=== PATIENT | female | born 1970 | race Caucasian/White ===

== ENCOUNTER 2016-12-12 08:40 | Emergency (ER) | payer OTHER ==
[~2016-12-12] VITALS: Ht 170.2 cm; Wt 100.7 kg
[~2016-12-12 08:40] MED LIST: ANAS1TAB19 PO; ESCI1TAB18 PO; LISI20TA3 PO; METF500T PO
[2016-12-12 08:46] VITALS: TEMP 36.7; Ht 170.2 cm; Wt 100.7 kg
[2016-12-12 09:28] LABS: MANUAL MICROSCOPIC REQUIRED? NO; REVIEW REQ? NO; URINE APPEARANCE CLEAR (CLEAR); URINE BILIRUBIN NEG (NEG); URINE COLOR YELLOW; URINE NITRITE NEG (NEG); URINE SPECIFIC GRAVITY 1.021 (1.000-1.030); UROBILINOGEN NEG (NEG); ZZUR CULT IF INDIC CLEAN CATCH NO
[2016-12-12] MEDS ORDERED: LOSA1TAB PO (09:31)
[2016-12-12] MEDS ORDERED: GLCSR500 PO (09:31)
--- NOTE | 2016-12-12 10:00 | EMERGENCY ROOM VISIT NOTE ---
History Report prepared by Wagner: Page Bucio Under the Supervision of: Dr. Mike Damico M.D. First contact with patient: 09:35 Chief Complaint: UNABLE TO VOID Stated Complaint: BURNING,PAIN,UTI?KIDNEY STONE? Nursing Triage Summary: Burning and pain on urination with hesitancy, started yesterday. Hx of septicemia, kidney stone requiring stents, UTI per pt. History of Present Illness The patient is a 46 year old female who presents to the Emergency Room with complaints of constant burning pain in her urethra starting three days ago. The patient states that she has been having urinary symptoms and complains of not being able to urinate this morning. She states that she is experiencing some right back pain as well. She reports that she has a history of kidney stones, hydronephrosis, and an oophorectomy. The patient reports she no longer gets her period. She denies any abdominal pain. Source of History: patient Onset: three days ago Position: other (urethra) Quality: burning Timing: constant Associated Symptoms: + back pain, + urinary symptoms, No abdominal pain Review of Systems All systems have been listed, reviewed, and are negative other than those previously mentioned. Please see Additional Medical History Sheet. Past Medical & Surgical Medical Problems: (1) Breast cancer (2) Hydronephrosis (3) Hypertension (4) Kidney stone (5) Sepsis (6) ureteral stent Family History Patient reports no known family medical history. No pertinent family history. Social History Smoking Status: Never Smoker Drug Use: none Marital Status: single Occupation Status: employed Current/Historical Medications Scheduled Anastrozole (Arimidex), 1 MG PO DAILY Escitalopram Oxalate (Lexapro), 20 MG PO DAILY Losartan Potassium (Cozaar), 25 MG PO QAM Metformin HCl (Metformin HCl ER), 500 MG PO BID Nitrofurantoin Monohyd Macrocr (Macrobid), 100 MG PO BID Allergies Coded Allergies: Adhesives (Verified Allergy, Intermediate, skin blisters, 12/12/16) Physical Exam Vital Signs Date Time Temp Pulse Resp B/P Pulse Ox O2 Delivery O2 Flow Rate FiO2 12/12/16 11:57 84 16 164/98 96 12/12/16 10:41 85 16 161/103 96 Room Air 12/12/16 08:46 36.7 89 16 180/121 96 Room Air Physical Exam GENERAL: Patient awake, alert, oriented x 3. Patient follows commands. Patient does not appear toxic. Patient is adequately hydrated and well- nourished. SKIN: No erythema, pallor, cyanosis or rash HEENT: Normal head, pupils equal, reactive to light and accommodation. Ears normal. Oral cavity and posterior pharynx appear normal. Neck: Without adenopathy, no neck vein distention. LUNGS: Clear to auscultation. No wheezes, no rales, no rhonchi. HEART: No murmurs. No gallops. No rubs ABDOMEN: No masses, no rebound, no hepatomegaly or splenomegaly. Soft non-tender , no CVA tenderness. EXTREMITIES: No signs of trauma or infection. No pedal or pretibial edema. No calf or thigh tenderness. NEUROLOGIC: Cranial nerves II-XII within normal limits. No gross motor sensory function deficits. Medical Decision & Procedures ER Provider Diagnostic Interpretation: Radiology results as stated below per my review and radiologist interpretation: RENAL ULTRASOUND HISTORY: right flank pain past stones COMPARISON: None. FINDINGS: Right kidney: 12.1 cm. Moderate hydronephrosis. Normal corticomedullary differentiation and cortical thickness. A 9 mm stone at the right ureterovesical junction. Left kidney: 12.3 cm. No hydronephrosis. Normal corticomedullary differentiation and cortical thickness. A 1.8 cm parapelvic cyst. Bladder: No bladder wall thickening. IMPRESSION: A 9 mm right ureterovesical junction stone resulting and moderate right hydronephrosis. Electronically signed by: Richard Fuentes M.D. 12/12/2016 11:04 AM Dictated Date/Time: 12/12/2016 11:03 AM Laboratory Results 12/12/16 09:50 Red Blood Count 4.69, Mean Corpuscular Volume 85.3, Mean Corpuscular Hemoglobin 27.5, Mean Corpuscular Hemoglobin Concent 32.3, Mean Platelet Volume 9.9, Neutrophils (%) (Auto) 69.6, Lymphocytes (%) (Auto) 18.6, Monocytes (%) (Auto) 8.4, Eosinophils (%) (Auto) 3.0, Basophils (%) (Auto) 0.2, Neutrophils # (Auto) 5.86, Lymphocytes # (Auto) 1.57, Monocytes # (Auto) 0.71, Eosinophils # (Auto) 0.25, Basophils # (Auto) 0.02 12/12/16 09:50 Test 12/12/16 08:55 12/12/16 09:50 Urine Color YELLOW Urine Appearance CLEAR (CLEAR) Urine pH 5.0 (4.5-7.5) Urine Specific [place] 1.021 (1.000-1.030) Urine Protein NEG (NEG) Urine Glucose (UA) NEG (NEG) Urine Ketones NEG (NEG) Urine Occult Blood 3+ (NEG) Urine Nitrite NEG (NEG) Urine Bilirubin NEG (NEG) Urine Urobilinogen NEG (NEG) Urine Leukocyte Esterase TRACE (NEG) Urine WBC (Auto) 1-5 /hpf (0-5) Urine RBC (Auto) >30 /hpf (0-4) Urine Hyaline Casts (Auto) 0 /lpf (0-5) Urine Epithelial Cells (Auto) 5-10 /lpf (0-5) Urine Bacteria (Auto) NEG (NEG) Urine Test NEG (NEG) White Blood Count 8.43 K/uL (4.8-10.8) Red Blood Count 4.69 M/uL (4.2-5.4) Hemoglobin 12.9 g/dL (12.0-16.0) Hematocrit 40.0 % (37-47) Mean Corpuscular Volume 85.3 fL (80-100) Mean Corpuscular Hemoglobin 27.5 pg (25-34) Mean Corpuscular Hemoglobin Concent 32.3 g/dl (32-36) Platelet Count 283 K/uL (130-400) Mean Platelet Volume 9.9 fL (7.4-10.4) Neutrophils (%) (Auto) 69.6 % Lymphocytes (%) (Auto) 18.6 % Monocytes (%) (Auto) 8.4 % Eosinophils (%) (Auto) 3.0 % Basophils (%) (Auto) 0.2 % Neutrophils # (Auto) 5.86 K/uL (1.4-6.5) Lymphocytes # (Auto) 1.57 K/uL (1.2-3.4) Monocytes # (Auto) 0.71 K/uL (0.11-0.59) Eosinophils # (Auto) 0.25 K/uL (0-0.5) Basophils # (Auto) 0.02 K/uL (0-0.2) RDW Standard Deviation 44.3 fL (36.4-46.3) RDW Coefficient of Variation 14.3 % (11.5-14.5) Immature Granulocyte % (Auto) 0.2 % Immature Granulocyte # (Auto) 0.02 K/uL (0.00-0.02) Anion Gap 9.0 mmol/L (3-11) Est Creatinine Clear Calc Drug Dose 83.9 ml/min Estimated GFR () 77.2 Estimated GFR (Non- 66.6 BUN/Creatinine Ratio 18.6 (10-20) Calcium Level 9.5 mg/dl (8.5-10.1) Laboratory results as stated above per my review. ED Course 0935: Past medical records reviewed. The patient was evaluated in room B10. A complete history and physical examination was performed. 1119: I reevaluated the patient and she is now in minimal pain. 1137: Upon reevaluation, the patient appeared to have improvement of her symptoms. I discussed today's findings with the patient. She verbalized agreement of the treatment plan. The patient was discharged home. Medical Decision Differential Diagnoses include urinary tract infection, pyonephritis, kidney stones Multiple labs and imaging were performed. Please see above. The patient has a 9 mm stone at the ureterovesical junction on the right side. She also has some hydronephrosis on the same side. The patient has only a few white cells and no bacteria in her urine. The patient has a prior history of septicemia from a previous stone. She will be placed on Macrobid prophylactically. The patient most likely will not pass the stone on her own but she currently is in minimal pain, therefore she can go home but will call her urologist tomorrow morning. Impression Primary Impression: Right ureteral calculus Additional Impressions: Hydronephrosis Elevated blood pressure reading Scribe Attestation The scribe's documentation has been prepared under my direction and personally reviewed by me in its entirety. I confirm that the note above accurately reflects all work, treatment, procedures, and medical decision making performed by me. Departure Information Dispostion Home / Self-Care Prescriptions Nitrofurantoin Monohyd Macrocr (Macrobid) 100 Mg Cap 100 MG PO BID for 5 Days, #10 CAP Prov: Mike Damico M.D. 12/12/16 Referrals Rosemarie Galo M.D. (PCP) Forms HOME CARE DOCUMENTATION FORM, IMPORTANT VISIT INFORMATION, WORK / SCHOOL INSTRUCTIONS Patient Instructions My [facility] [place] Additional Instructions 600 mg ibuprofen every 6 hours as needed for pain. You may take 1-2 oxycodone every 4 hours as needed for more severe pain. Do not drive or operate machinery while taking any opiates. 1 Macrobid twice a day for 5 days. Follow-up with Dr. Horner as soon as possible. You have a 9 mm stone at the right ureterovesical junction with some right hydronephrosis. Problem Qualifiers
[2016-12-12 10:12] LABS: BASO % 0.2 %; BASO ABS # 0.02 K/uL (0-0.2); COMPLETE YES; IG% 0.2 %; LYMPH % 18.6 %; LYMPH ABS # 1.57 K/uL (1.2-3.4); MEAN CELL VOLUME 85.3 fL (80-100); MEAN CORPUSCULAR HEMOGLOBIN 27.5 pg (25-34); MEAN CORPUSCULAR HGB CONC 32.3 g/dl (32-36); MEAN PLATELET VOLUME 9.9 fL (7.4-10.4); MONO % 8.4 %; NEUT % 69.6 %; PLATELET COUNT 283 K/uL (130-400); RED BLOOD COUNT 4.69 M/uL (4.2-5.4); WHITE BLOOD COUNT 8.43 K/uL (4.8-10.8)
[2016-12-12 10:29] LABS: BUN/CREATININE RATIO 18.6 (10-20); CALCIUM 9.5 mg/dl (8.5-10.1); POTASSIUM 4.3 mmol/L (3.5-5.1)
--- NOTE | 2016-12-12 11:06 | DIAGNOSTIC IMAGING REPORT ---
RENAL ULTRASOUND HISTORY: right flank pain past stones COMPARISON: None. FINDINGS: Right kidney: 12.1 cm. Moderate hydronephrosis. Normal corticomedullary differentiation and cortical thickness. A 9 mm stone at the right ureterovesical junction. Left kidney: 12.3 cm. No hydronephrosis. Normal corticomedullary differentiation and cortical thickness. A 1.8 cm parapelvic cyst. Bladder: No bladder wall thickening. IMPRESSION: A 9 mm right ureterovesical junction stone resulting and moderate right hydronephrosis. Electronically signed by: Richard Fuentes M.D. 12/12/2016 11:04 AM Dictated Date/Time: 12/12/2016 11:03 AM
[2016-12-12] MEDS ORDERED: NITR-5 PO (11:26)
[2016-12-12 11:57] VITALS: BP 164/98; PULSE 84; O2SAT 96
== END 2016-12-12 11:58 | disposition home or self-care (01) ==
LOC: C.EDB 08:41
DX: N20.1 Calculus of ureter (principal); N13.30 Unspecified hydronephrosis; R03.0 Elevated blood-pressure reading, without diagnosis of hypertension; Z85.3 Personal history of malignant neoplasm of breast; I10 Essential (primary) hypertension; Z90.722 Acquired absence of ovaries, bilateral; Z79.82 Long term (current) use of aspirin

== ENCOUNTER 2018-08-30 07:15 | Inpatient (IN) ==
[2018-08-30] MEDS ORDERED: SODIUM CHLORIDE 0.9% 1000ML 1,000 ML IV ONE (07:45)
[2018-08-30] MEDS ORDERED: HYDROmorphone INJ 0.5 MG/0.5 ML SYR IV STA (07:45)
[2018-08-30] MEDS ORDERED: ONDANSETRON INJ 2 MG/ML 2 ML VIAL IV STA ×2 (07:45→19:04)
--- NOTE | 2018-08-30 08:02 | Emergency Department Note ---
History of Present Illness General Chief complaint: Kidney Stone Stated complaint: VOMITING,BACK PAIN,POSS KIDNEY STONE Time Seen by Provider: 08/30/18 07:22 History of Present Illness Maximum Pain Intensity: 9 48-year-old female who presents to the emergency department with complaint of left back, flank and left lower quadrant pain that awakened her at 3 AM. The patient reports that the pain was initially sharp and intermittent in nature, and is now constant. The patient reports nausea and dry heaving for the past 4 hours. She try to take some Celebrex for the pain, but vomited her medication twice. The patient reports a prior history of kidney stones, and reports that this pain feels similar. Her last stone was approximately 2 years ago. The patient also reports that she has had some bright red blood on her stools. She denies any bleeding into the toilet. She does report a history of internal hemorrhoids that were found on colonoscopy approximately 3 years ago. In addition to the hemorrhoids, they also found a polyp that was benign. No mention of diverticulosis was made after her procedure. The patient also reports that she has had a cough now for several months. The patient does not have health insurance, and has not followed up with her family doctor for her cough. The patient currently rates her discomfort a 9 out of 10. She denies recent fever or chills. Home Medications Home Medications Medication Instructions Recorded Confirmed Type anastrozole [Arimidex] 1 mg PO DAILY #0 tab 08/07/15 08/30/18 History escitalopram oxalate 20 mg PO DAILY #0 tab 08/07/15 08/30/18 History losartan 25 mg PO DAILY #0 tab 12/12/16 08/30/18 History metformin 1,000 mg PO BID #0 12/12/16 08/30/18 History atorvastatin 20 mg PO DAILY 08/30/18 08/30/18 History bupropion HCl [Wellbutrin XL] 150 mg PO QAM 08/30/18 08/30/18 History glipizide 10 mg PO DAILY 08/30/18 08/30/18 History Allergies Allergy/AdvReac Type Severity Reaction Status Date / Time adhesive Allergy Intermediate skin Verified 08/30/18 07:44 blisters Past Med/Surg History Family History Father CAD (coronary artery disease) Mother Cerebral aneurysm Grandmother (Paternal) Ovarian ca Social History marital status: Single Current Living Situation: Alone current occupational status: employed Other Information That Helps Us Care for You: No Feels Safe at Home: Yes Safety Concerns: Feels Safe At This Time Smoking Status: Never smoker Do You Dip or Chew Tobacco: No Hx Alcohol Use: Yes Alcohol Intake Frequency: a few times a week Alcohol Intake Frequency Comment: 5 drinks a week Hx Substance Use: No Beliefs That Will Affect Care: None Preferred Language: Kazakh Communication Ability: Effective Outsole Cutter Machine Required: No Review of Systems HEENT: Denies dizziness, visual problems, hearing loss, tinnitus. Denies difficulty swallowing or oral lesions. PULMONARY: Denies shortness of breath, sputum production or hemoptysis, otherwise see HPI with complaint of a several month history of cough. CARDIOVASCULAR: Denies chest pain, palpitations, dyspnea on exertion, orthopnea or peripheral edema. GASTROINTESTINAL: Denies recent diarrhea or constipation, otherwise see HPI. GENITOURINARY: Denies dysuria, frequency, urgency or nocturia. NEUROLOGIC: Denies history of epilepsy, CVA, TIA or chronic headaches. MUSCULOSKELETAL: Denies history of joint tenderness/swelling. SKIN: Denies rashes or lesions. PSYCHIATRIC: Denies history of depression or mental illness. ENDOCRINE: Denies history of diabetes or thyroid disorders. Physical Exam Vital Signs Vital Signs - 24 hr 08/30/18 07:19 08/30/18 08:21 08/30/18 09:47 Temperature 36.3 C L Temperature Source Oral Sepsis Recent Fever Within 48 Hours No Sepsis New/Unexplained Change in Mental Status No Sepsis Action Taken by Nursing No Action Required Pulse Rate 91 H Pulse Rate [Left Brachial] 81 86 Pulse Rate [Right Finger] Respiratory Rate 20 18 16 Respiratory Effort / Characteristics Non-Labored Spontaneous Non-Labored Spontaneous Respiratory Depth Normal Normal Respiratory Pattern Regular Regular Blood Pressure 146/88 H Blood Pressure [Left Arm] 148/97 H 150/99 H Blood Pressure Mean 107 Blood Pressure Mean [Left Arm] 114 116 Blood Pressure Position [Left Arm] Lying Lying Pulse Oximetry 97 92 95 Oxygen Delivery Method Room Air Room Air Room Air 08/30/18 11:20 08/30/18 15:15 08/30/18 16:45 Temperature 36.8 C 36.7 C 37 C Temperature Source Oral Oral Oral Sepsis Recent Fever Within 48 Hours Sepsis New/Unexplained Change in Mental Status Sepsis Action Taken by Nursing Pulse Rate Pulse Rate [Left Brachial] 83 96 H Pulse Rate [Right Finger] 93 H Respiratory Rate 18 17 16 Respiratory Effort / Characteristics Non-Labored Spontaneous Non-Labored Spontaneous Respiratory Depth Normal Normal Respiratory Pattern Regular Regular Blood Pressure Blood Pressure [Left Arm] 152/94 H 157/96 H 137/85 Blood Pressure Mean Blood Pressure Mean [Left Arm] 113 116 102 Blood Pressure Position [Left Arm] Lying Lying Lying Pulse Oximetry 91 91 95 Oxygen Delivery Method Room Air Room Air Room Air CONSTITUTIONAL: Healthy and well nourished. Alert and oriented X 3. Patient appears in moderate severe discomfort. HEENT: Normocephalic, atraumatic. Pupils equal, round and reactive. Ears and nares are clear. No scleral icterus or conjunctival injection/pallor. Mucous membranes are dry. NECK: Full active range of motion without discomfort. No nuchal rigidity, JVD or carotid bruits. RESPIRATORY: Clear to auscultation bilaterally with no wheezing, crackles, rhonchi or stridor. CARDIOVASCULAR: Regular rate and rhythm with no murmurs, rubs or gallops. GASTROINTESTINAL: Bowel sounds present in all quadrants. Patient has minimal left lower quadrant tenderness to palpation. Negative CVA tenderness. No rigidity, guarding or rebound. MUSCULOSKELETAL: Full range of motion of all joints without discomfort. INTEGUMENTARY: No rash or other significant dermatologic conditions noted. HEMATOLOGIC: No ecchymosis or petechiae. NEUROLOGIC: Cranial nerves II-XII grossly intact. No focal neurologic deficits noted. PSYCHIATRIC: Positive affect. Course Patient history and physical exam were performed. Nurse's notes were reviewed. Vital signs were reviewed, showing an elevated blood pressure of 146/88. The patient is not tachycardic and is afebrile. IV access was established, and labs were drawn. The patient was hydrated initially with a liter of normal saline, and was also administered IV Dilaudid and Zofran for pain and nausea. Review of labs shows a mild leukocytosis with left shift and bandemia. Electrolytes were reviewed, showing elevated LFTs and alkaline phosphatase. Random glucose was also elevated at 284. Lipase and remaining electrolytes are otherwise normal. Noncontrast CT of the abdomen and pelvis showed 2 adjacent obstructing ureteral stones at the UPJ, measuring 10 and 5 mm in size. Chest x- ray did not show any acute intrathoracic findings. Upon reevaluation, the patient reported no significant relief of pain. She was then administered additional Dilaudid and Zofran. The case was then discussed with Dr. Aponte, ED attending physician, who recommended consultation with [facility] urology. I spoke with Dr. Horner who requested a urine cath microscopy study. She has requested that the patient be brought into the hospital for observation and n.p.o. status until she can reevaluate the patient later this afternoon for possible surgical intervention. I did discuss this with the patient who was in agreement. The case was then discussed with the [facility] hospitalist service. Please see their dictations for further treatment and final disposition. Administered Medications Sodium Chloride (Nss 1000ml) 1,000 mls @ 150 mls/hr IV .Q6H40M GERARD Stop: 09/29/18 11:29 Last Admin: 08/30/18 11:31 Dose: 150 mls/hr Insulin Aspart (Novolog Flexpen) 0 units SC Q6H GERARD Stop: 09/29/18 12:59 Last Admin: 08/30/18 12:51 Dose: Not Given Insulin Glargine (Lantus Solostar Pen) 0 - 8 units SC Q12 GERARD; Protocol Stop: 09/29/18 11:15 Last Admin: 08/30/18 12:14 Dose: 8 units Ketorolac Tromethamine (Toradol) 15 mg IV Q6H PRN PRN Reason: Pain Stop: 09/04/18 11:15 Last Admin: 08/30/18 11:45 Dose: 15 mg Losartan Potassium (Cozaar) 25 mg PO DAILY GERARD Stop: 09/29/18 11:15 Last Admin: 08/30/18 12:03 Dose: 25 mg Ondansetron HCl (Zofran) 4 mg IV Q6H PRN PRN Reason: Nausea Stop: 09/29/18 11:15 Last Admin: 08/30/18 11:46 Dose: 4 mg Discontinued Medications Hydromorphone HCl (Dilaudid) 0.5 mg IV NOW STA Stop: 08/30/18 07:46 Last Admin: 08/30/18 08:01 Dose: 0.5 mg Hydromorphone HCl (Dilaudid) 1 mg IV NOW STA Stop: 08/30/18 09:41 Last Admin: 08/30/18 09:51 Dose: 1 mg Sodium Chloride (Nss 1000ml) 1,000 mls @ 999 mls/hr IV .Q1H1M ONE Stop: 08/30/18 08:45 Last Infusion: 08/30/18 08:55 Dose: 0 mls/hr Admin: 08/30/18 08:00 Dose: 999 mls/hr Insulin Aspart (Novolog Flexpen) 0 units SC ACHS GERARD Stop: 09/29/18 11:29 Last Admin: 08/30/18 12:15 Dose: 3 units Ondansetron HCl (Zofran) 4 mg IV NOW STA Stop: 08/30/18 07:46 Last Admin: 08/30/18 08:01 Dose: 4 mg Medical Decision Making Medical Records Attestation: I reviewed the patient's medical records. Home Medications Current Medication List: was personally reviewed by me Laboratory Data Attestation: I reviewed the patient's lab results. Result diagrams: 08/30/18 08:00 08/30/18 08:00 Lab Results 08/30/18 08/30/18 08/30/18 Range/Units 07:30 07:30 08:00 WBC 13.09 H (4.8-10.8) K/uL RBC 4.41 (4.2-5.4) M/uL Hgb 12.2 (12.0-16.0) g/dL Hct 37.4 (37-47) % MCV 84.8 (80-100) fL MCH 27.7 (25-34) pg MCHC 32.6 (32-36) g/dL RDW Std Deviation 44.6 (36.4-46.3) fL RDW Coeff of Santhosh 14.4 (11.5-14.5) % Plt Count 276 (130-400) K/uL MPV 9.5 (7.4-10.4) fL Immature Gran % (Auto) 0.3 % Neut % (Auto) 84.5 % Lymph % (Auto) 10.8 % Ida % (Auto) 3.8 % Eos % (Auto) 0.4 % Baso % (Auto) 0.2 % Immature Gran # (Auto) 0.04 H (0.00-0.02) K/uL Neut # (Auto) 11.06 H (1.4-6.5) K/uL Lymph # (Auto) 1.42 (1.2-3.4) K/uL Ida # (Auto) 0.50 (0.11-0.59) K/uL Eos # (Auto) 0.05 (0-0.5) K/uL Baso # (Auto) 0.02 (0-0.2) K/uL Sodium (136-145) mmol/L Potassium (3.5-5.1) mmol/L Chloride (98-107) mmol/L Carbon Dioxide (21-32) mmol/L Anion Gap (3-11) BUN (7-18) mg/dl Creatinine (0.6-1.2) mg/dl Est Cr Clr Drug Dosing ml/min Est GFR ( Amer) Est GFR (Non-Af Amer) BUN/Creatinine Ratio (10-20) Glucose (70-99) mg/dl POC Glucose (70-99) Calcium (8.5-10.1) mg/dl Total Bilirubin (0.2-1) mg/dl AST (15-37) U/L ALT (12-78) U/L Alkaline Phosphatase (45-117) U/L Total Protein (6.4-8.2) gm/dl Albumin (3.4-5.0) gm/dl Globulin (2.5-4.0) gm/dl Albumin/Globulin Ratio (0.9-2) Lipase (73-393) U/L Urine Color Yellow Urine Appearance Turbid H (Clear) Urine pH 5.0 (4.5-7.5) Ur Specific [place] 1.026 (1.000-1.030) Urine Protein 1+ H (Negative) Urine Glucose (UA) 2+ H (Negative) Urine Ketones 1+ H (Negative) Urine Blood 3+ H (Negative) Urine Nitrite Negative (Negative) Urine Bilirubin Negative (Negative) Urine Urobilinogen Negative (Negative) Ur Leukocyte Esterase 3+ H (Negative) Urine WBC (Auto) >30 H (0-5) /hpf Urine RBC (Auto) >30 H (0-4) /hpf U Hyaline Cast (Auto) 1-5 (0-5) /lpf U Epithel Cells (Auto) >30 H (0-5) /lpf Urine Bacteria (Auto) Negative (Negative) Urine RBC Urine WBC Ur Epithelial Cells Urine Bacteria POC Ur Test NEG (NEG) 08/30/18 08/30/18 08/30/18 Range/Units 08:00 10:13 12:08 WBC (4.8-10.8) K/uL RBC (4.2-5.4) M/uL Hgb (12.0-16.0) g/dL Hct (37-47) % MCV (80-100) fL MCH (25-34) pg MCHC (32-36) g/dL RDW Std Deviation (36.4-46.3) fL RDW Coeff of Santhosh (11.5-14.5) % Plt Count (130-400) K/uL MPV (7.4-10.4) fL Immature Gran % (Auto) % Neut % (Auto) % Lymph % (Auto) % Ida % (Auto) % Eos % (Auto) % Baso % (Auto) % Immature Gran # (Auto) (0.00-0.02) K/uL Neut # (Auto) (1.4-6.5) K/uL Lymph # (Auto) (1.2-3.4) K/uL Ida # (Auto) (0.11-0.59) K/uL Eos # (Auto) (0-0.5) K/uL Baso # (Auto) (0-0.2) K/uL Sodium 136 (136-145) mmol/L Potassium 4.0 (3.5-5.1) mmol/L Chloride 102 (98-107) mmol/L Carbon Dioxide 22 (21-32) mmol/L Anion Gap 12.0 H (3-11) BUN 22 H (7-18) mg/dl Creatinine 1.20 (0.6-1.2) mg/dl Est Cr Clr Drug Dosing 69.4 ml/min Est GFR ( Amer) 61.0 Est GFR (Non-Af Amer) 52.7 BUN/Creatinine Ratio 18.6 (10-20) Glucose 284 H (70-99) mg/dl POC Glucose 251 H (70-99) Calcium 9.4 (8.5-10.1) mg/dl Total Bilirubin 0.3 (0.2-1) mg/dl AST 47 H (15-37) U/L ALT 82 H (12-78) U/L Alkaline Phosphatase 119 H (45-117) U/L Total Protein 8.2 (6.4-8.2) gm/dl Albumin 3.8 (3.4-5.0) gm/dl Globulin 4.4 H (2.5-4.0) gm/dl Albumin/Globulin Ratio 0.9 (0.9-2) Lipase 137 (73-393) U/L Urine Color Yellow Urine Appearance Clear (Clear) Urine pH 5.5 (4.5-7.5) Ur Specific [place] >= 1.030 (1.000-1.030) Urine Protein Negative (Negative) Urine Glucose (UA) 2+ H (Negative) Urine Ketones 1+ H (Negative) Urine Blood 3+ H (Negative) Urine Nitrite Negative (Negative) Urine Bilirubin Negative (Negative) Urine Urobilinogen Negative (Negative) Ur Leukocyte Esterase Negative (Negative) Urine WBC (Auto) 1-5 (0-5) /hpf Urine RBC (Auto) >30 H (0-4) /hpf U Hyaline Cast (Auto) 0 (0-5) /lpf U Epithel Cells (Auto) 5-10 H (0-5) /lpf Urine Bacteria (Auto) Negative (Negative) Urine RBC Not Reportable Urine WBC Not Reportable Ur Epithelial Cells Not Reportable Urine Bacteria Not Reportable POC Ur Test (NEG) Imaging Data Attestation: I personally reviewed and interpreted this imaging study as follows : My Impression: My interpretation of a portable chest x-ray does not show any consolidations, pneumothorax or cardiac prominence. Noncontrast CT of the abdomen and pelvis shows 2 adjacent left UPJ stones with a mild left hydronephrosis. Bilateral nephrolithiasis is also noted. Radiologist reports were reviewed. Radiologist's Impression: ABDOMEN AND PELVIS CT WITHOUT CONTRAST CT DOSE: 1420.11 mGy.cm HISTORY: LLQ/pain, urine/rectal blood - h/o stones, hemorrh TECHNIQUE: Multiaxial CT images of the abdomen and pelvis were performed without contrast. A dose lowering technique was utilized adhering to the principles of ALARA. COMPARISON STUDY: Renal ultrasound 12/12/2016. FINDINGS: The lung bases are clear. No pneumoperitoneum. No pneumatosis. No fractures within the visualized osseous structures. Evidence for bilateral breast augmentation. Hepatic steatosis. The unenhanced gallbladder, pancreas, spleen, and adrenal glands are unremarkable. No retroperitoneal lymphadenopathy. The bladder is not well-distended but appears unremarkable. A 1.5 cm subserosal nodule along the posterior wall the uterus. This likely represents a fibroid. Suboptimal evaluation for bowel pathology due to the lack of intravenous and oral contrast. However, there is no definite bowel wall thickening or obstruction. Normal appendix. There is a punctate stone within the upper pole the right kidney. No right-sided hydronephrosis. 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 There are few punctate nonobstructing stones within the left kidney. Mild left hydronephrosis secondary to 2 adjacent obstructing stones at the left ureteropelvic junction. These stones measure 10 and 5 mm in size. IMPRESSION: 1. There are 2 obstructing stones within the left ureteropelvic junction resulting in mild left hydronephrosis. 2. Bilateral nephrolithiasis. 3. Hepatic steatosis. XR chest 2V routine HISTORY: 48 years-old Female Cough x mths acute cough for several months. COMPARISON: Chest radiograph 08/07/2015, CTA chest 08/10/2015, CT abdomen and pelvis August 30, 2018 TECHNIQUE: PA and lateral views of the chest FINDINGS: Cardiomediastinal and hilar silhouettes are within normal limits. Mild right hemidiaphragmatic elevation. No pneumothorax, pleural effusion or overt pulmonary edema. No focal airspace consolidation to suggest pneumonia. Bones appear grossly intact. IMPRESSION: No acute process. Blood Pressure Blood Pressure Findings: Elevated blood pressure Blood Pressure Disposition: elevated BP felt to be situational MDM Narrative Patient presents to the emergency department with complaint of rather abrupt onset and severe left flank pain. The patient was initially pacing the room, which is more suggestive of renal colic. CT scan does show 2 adjacent left UPJ ureteral stones. At the time of transfer of care to the [facility] service, a urine cath specimen did not show evidence for infection. The patient will likely undergo further surgical intervention. The patient also has had a cough for the past 2 months, without any obvious intrathoracic/ pulmonary findings. The hospitalist service will likely also work this up as well. Impression & Plan Calculus of proximal left ureter, Cough Discharge Plan Visit Data *Final* Discharge Date/Time: 08/30/18 11:01 Chief Complaint: Kidney Stone Stated Complaint: VOMITING,BACK PAIN,POSS KIDNEY STONE ED Provider: Dillon Aponte ED Midlevel Provider: Pipe Pink Discharge Problem: Calculus of proximal left ureter, Cough Patient Disposition: Admitted As Inpatient Condition: Fair Discharge Instructions Interventions: ED Discharge Assessment Last Done: 08/30/18 11:01
[2018-08-30 08:05] LABS: Basophils # (auto) 0.02 K/uL (0-0.2); Basophils % (auto) 0.2 %; Eosinophils # (auto) 0.05 K/uL (0-0.5); Eosinophils % (auto) 0.4 %; Hematocrit (blood only) 37.4 % (37-47); Hemoglobin 12.2 g/dL (12.0-16.0); Immature Granulocytes # (auto) 0.04 K/uL (0.00-0.02); Immature Granulocytes % (auto) 0.3 %; Lymphocytes # (auto) 1.42 K/uL (1.2-3.4); Lymphocytes % (auto) 10.8 %; Mean Corpuscular Hgb Conc 32.6 g/dL (32-36); Mean Corpuscular Volume 84.8 fL (80-100); Mean Platelet Volume 9.5 fL (7.4-10.4); Monocytes % (auto) 3.8 %; Neutrophils # (auto) 11.06 K/uL (1.4-6.5); Neutrophils % (auto) 84.5 %; Platelet Count 276 K/uL (130-400); RDW Coefficient of Variation 14.4 % (11.5-14.5); RDW Standard Deviation 44.6 fL (36.4-46.3); Red Blood Count 4.41 M/uL (4.2-5.4); White Blood Count 13.09 K/uL (4.8-10.8)
[2018-08-30 08:18] LABS: Albumin Level 3.8 gm/dl (3.4-5.0); BUN Creatinine Ratio 18.6 (10-20); Calcium 9.4 mg/dl (8.5-10.1); Creatinine Clr Calc Pharmacy 69.4 ml/min; Est GFR (Non-African American) 52.7
[2018-08-30 08:21] LABS: Appearance Urine Turbid (Clear); Bacteria Urine Automated Negative (Negative); Bilirubin Urine Negative (Negative); Color Urine Yellow; Epithelial Cell Urine Auto >30 /lpf (0-5); Glucose Urine UA 2+ (Negative); Ketones Urine 1+ (Negative); Leukocyte Esterase Urine 3+ (Negative); Nitrite Urine Negative (Negative); Protein Urine 1+ (Negative); Specific Gravity Urine 1.026 (1.000-1.030); Urobilinogen Urine Negative (Negative); WBC Urine Automated >30 /hpf (0-5)
[2018-08-30 08:21] LABS: Albumin Globulin Ratio 0.9 (0.9-2); Bilirubin,Total 0.3 mg/dl (0.2-1); Globulin 4.4 gm/dl (2.5-4.0); Total Protein 8.2 gm/dl (6.4-8.2)
--- NOTE | 2018-08-30 08:21 | CT Scan Report ---
ABDOMEN AND PELVIS CT WITHOUT CONTRAST CT DOSE: 1420.11 mGy.cm HISTORY: LLQ/pain, urine/rectal blood - h/o stones, hemorrh TECHNIQUE: Multiaxial CT images of the abdomen and pelvis were performed without contrast. A dose lo wering technique was utilized adhering to the principles of ALARA. COMPARISON STUDY: Renal ultrasound 12/12/2016. FINDINGS: The lung bases are clear. No pneumoperitoneum. No pneumatosis. No fractures within the visu alized osseous structures. Evidence for bilateral breast augmentation. Hepatic steatosis. The unenhan isidoro gallbladder, pancreas, spleen, and adrenal glands are unremarkable. No retroperitoneal lymphadeno allegra. The bladder is not well-distended but appears unremarkable. A 1.5 cm subserosal nodule along t he posterior wall the uterus. This likely represents a fibroid. Suboptimal evaluation for bowel patho logy due to the lack of intravenous and oral contrast. However, there is no definite bowel wall thick ening or obstruction. Normal appendix. There is a punctate stone within the upper pole the right kidn ey. No right-sided hydronephrosis. A 6 mm fat-containing lesion within the left kidney consistent wit h an angiomyolipoma. There are few punctate nonobstructing stones within the left kidney. Mild left h ydronephrosis secondary to 2 adjacent obstructing stones at the left ureteropelvic junction. These st ones measure 10 and 5 mm in size. IMPRESSION: 1. There are 2 obstructing stones within the left ureteropelvic junction resulting in mild left hydro nephrosis. 2. Bilateral nephrolithiasis. 3. Hepatic steatosis. Electronically signed by: Richard Fuentes M.D. 08/30/2018 8:20 AM
--- NOTE | 2018-08-30 08:46 | XRay Report ---
XR chest 2V routine HISTORY: 48 years-old Female Cough x mths acute cough for several months. COMPARISON: Chest radiograph 08/07/2015, CTA chest 08/10/2015, CT abdomen and pelvis August 30, 2018 TECHNIQUE: PA and lateral views of the chest FINDINGS: Cardiomediastinal and hilar silhouettes are within normal limits. Mild right hemidiaphragmatic elevat ion. No pneumothorax, pleural effusion or overt pulmonary edema. No focal airspace consolidation to s uggest pneumonia. Bones appear grossly intact. IMPRESSION: No acute process. The above report was generated using voice recognition software. It may contain grammatical, syntax o r spelling errors. Electronically signed by: Darian Melissa M.D. 08/30/2018 8:44 AM
[2018-08-30] MEDS ORDERED: HYDROmorphone INJ 1 MG/ML SYRINGE IV STA (09:40)
[2018-08-30 10:50] LABS: Appearance Urine Clear (Clear); Bilirubin Urine Negative (Negative); Color Urine Yellow; Glucose Urine UA 2+ (Negative); Ketones Urine 1+ (Negative); Leukocyte Esterase Urine Negative (Negative); Nitrite Urine Negative (Negative); Protein Urine Negative (Negative); Specific Gravity Urine >= 1.030 (1.000-1.030); Urobilinogen Urine Negative (Negative); pH Urine 5.5 (4.5-7.5)
[2018-08-30 11:02] LABS: Bacteria Urine Automated Negative (Negative); Cast Urine Automated 0 /lpf (0-5)
[2018-08-30] MEDS ORDERED: DEXTROSE 50% 50 ML SYRINGE IV PRN (11:16)
[2018-08-30] MEDS ORDERED: GLUCOSE 10 TABS/TUBE PO PRN (11:16)
[2018-08-30] MEDS ORDERED: GLUCOSE 40% GEL 15 GM TUBE PO PRN (11:16)
[2018-08-30] MEDS ORDERED: GLUCAGON FOR INJ 1 MG VIAL SQ PRN (11:16)
[2018-08-30] MEDS ORDERED: MoRPHine SULFATE 4 MG/ML 1 ML CARP\\VIAL IV PRN (11:16)
[2018-08-30] MEDS ORDERED: ONDANSETRON INJ 2 MG/ML 2 ML VIAL IV PRN ×2 (11:16→16:50)
[2018-08-30] MEDS ORDERED: CARBOHYDRATES FOR HYPOGLYCEMIA PO PRN (11:16)
--- NOTE | 2018-08-30 11:21 | History & Physical Report ---
Date of Service August 30, 2018 Assessment & Plan (1) Nephrolithiasis: This is a 48-year-old white female with significant past medical history of HTN , HLD, T2 DM, elevated LFTs, history of right-sided breast CA status post complete mastectomy in 2011, history of nephrolithiasis in past requiring lithotripsy and stent placement in 2014 and 2016 who presents to [facility] ED secondary to left-sided back and abdominal pain since 3 AM. In ED patient's WBC was 13.09, hemoglobin 12.2, hematocrit 37.4, platelet 276, sodium 136, potassium 4.0, BUN 22, creatinine 1.20, glucose 284, AST 47, ALT 82 , alk phos 119, chest x-ray negative for acute abnormality. Her CT scan of abdomen pelvis revealed 2 obstructing nephrolithiasis at left ureteropelvic junction, 10mm and 5mm. In ED patient received 1 L IV fluid, IV Zofran, IV Dilaudid -admit to med/surg -consult Dr. Horner, who has been contacted and will be in to see pt after clinic this evening -keep NPO except meds -IVF 150cc/hr NS -IV toradol 15mg q6hr prn pain -IV morphine 4mg q4hr prn pain -IV zofran 4mg prn n/v -obtained cath urine specimen to r/o infectious cystitis component -strain all urine (2) Hydronephrosis: -plan as above (3) T2DM (type 2 diabetes mellitus): -A1C 7.8 03/2018 -repeat A1C in a.m. -hold metformin/glipizide -Lantus 0-8units SQ Q12 based on BGM -Novolog correction factor AC/HS (4) Hypertension: -continue cozaar -bp elevated upon admission, most likely in setting of pain (5) HLD (hyperlipidemia): -continue statin (6) Depression: -continue escitalopram (7) Elevated LFTs: - AST 47, ALT 82, Alk Phos 119 -in 03/2018 AST 89, ALT 118 -CT abd reveals hepatic steatosis -recommend low fat low chol diet with lifestyle modifications -would recommend further work up outpatient (8) DVT prophylaxis: -SCDS/Teds for now given possible upcoming procedure later this evening by Dr. Horner -encourage ambulation Disposition: D/C to home when medically able Follow up: with PCP Dr. London upon discharge Patient was seen in collaboration with Dr. Moran, please see addendum. History of Present Illness Chief Complaint: L sided back/abdominal pain since 3 am. Primary Care Provider: Lev London This is a 48-year-old white female with significant past medical history of HTN , HLD, T2 DM, elevated LFTs, history of right-sided breast CA status post complete mastectomy in 2011, history of nephrolithiasis in past requiring lithotripsy and stent placement in 2014 and 2016 who presents to [facility] ED secondary to left-sided back and abdominal pain since 3 AM. Patient was in her normal state of health until she awoke this morning at 3 AM with severe, 10 out of 10, left-sided back pain with radiation to left lower abdominal quadrant, constant, described as stabbing, nothing made better. She tried Celebrex without relief. She was unable to take her oral medications this morning secondary to nausea, yellow emesis. She elicits to being diaphoretic and sweaty secondary to retching. She denies f/c/s, dizziness, lightheaded, syncope, chest pain, sob, hemoptysis, hematemesis, diarrhea, dysuria, increased frequency urgency with urination, hematuria, melena, hematochezia. Her appetite has been normal up until this morning. Allergies Allergy/AdvReac Type Severity Reaction Status Date / Time adhesive Allergy Intermediate skin Verified 08/30/18 07:44 blisters Home Medications Home Medications Medication Instructions Recorded Confirmed Type anastrozole [Arimidex] 1 mg PO DAILY #0 tab 08/07/15 08/30/18 History escitalopram oxalate 20 mg PO DAILY #0 tab 08/07/15 08/30/18 History losartan 25 mg PO DAILY #0 tab 12/12/16 08/30/18 History metformin 1,000 mg PO BID #0 12/12/16 08/30/18 History atorvastatin 20 mg PO DAILY 08/30/18 08/30/18 History bupropion HCl [Wellbutrin XL] 150 mg PO QAM 08/30/18 08/30/18 History glipizide 10 mg PO DAILY 08/30/18 08/30/18 History Past Med/Surg History Medical History Depression (Chronic) HLD (hyperlipidemia) (Chronic) T2DM (type 2 diabetes mellitus) (Chronic) A1C 04/18/18 7.8 Elevated LFTs (Chronic) hepatic steatosis per CT on 08/30/17 LFT 04/18/2018 AST 89 ALT 118 Breast cancer (Chronic) hx R sided breast cancer in 2011 s/p complete simple masectomy Kidney stone (Chronic) Hypertension (Chronic) Surgical History History of breast biopsy History of lymph node biopsy History of lithotripsy History of ureter stent History of colonoscopy Family History Father CAD (coronary artery disease) Mother Cerebral aneurysm Grandmother (Paternal) Ovarian ca Social History marital status: Single Current Living Situation: Alone current occupational status: employed Other Information That Helps Us Care for You: No Feels Safe at Home: Yes Safety Concerns: Feels Safe At This Time Smoking Status: Never smoker Do You Dip or Chew Tobacco: No Second Hand Exposure: No Tobacco Cessation Education Requested by Patient: No Hx Alcohol Use: Yes Alcohol Intake Frequency: a few times a week Alcohol Intake Frequency Comment: 5 drinks a week Hx Substance Use: No Beliefs That Will Affect Care: None Preferred Language: French Communication Ability: Effective Freelance Programmer/App Developer Required: No Review of Systems All systems reviewed & are unremarkable except as noted in HPI & below Physical Exam 2 Vital Signs (Past 24 Hours): Last Vital Signs Temp 36.3 C L 08/30/18 07:19 Pulse 86 08/30/18 09:47 Resp 16 08/30/18 09:47 BP 150/99 H 08/30/18 09:47 Pulse Ox 95 08/30/18 09:47 Physical Exam: Gen: WD/WN, morbidly obese F, NAD, drowsy, lying in bed, pleasant, conversing easily, answers questions approp Head: Normocephalic, Atraumatic Eyes: Sclera normal, no conjunctival injection, PERRLA, EOMI ENT: Gross hearing intact, normal pharynx, mucous membranes dry Neck: supple, no adenopathy, No JVD, no bruit, Resp: Clear to auscultation b/l, no wheeze, rales, rhonchi. Normal insp/exp effort, no accessory muscle use CV: Regular rate, regular rhythm, no murmur, rub, gallop, or ectopy Abd: +BS x 4, soft, nontender, nondistended, +L CVA tenderness Musculoskeletal: moves extremities active rom x 4, strength intact, good speech and language clinician strength Extremities: No edema bilaterally Skin: warm, moist, no rash, negative turgor, cap refill < 2sec Neuro: Alert and oriented x 3, speech normal, good mood/affect, cran nerve 2-12 intact grossly : deferred Results & Data Laboratory Results Short CBC 08/30/18 Range/Units 08:00 WBC 13.09 H (4.8-10.8) K/uL Hgb 12.2 (12.0-16.0) g/dL Hct 37.4 (37-47) % Plt Count 276 (130-400) K/uL BMP 08/30/18 08:00 Sodium 136 Potassium 4.0 Chloride 102 Carbon Dioxide 22 BUN 22 H Creatinine 1.20 Glucose 284 H Calcium 9.4 Liver Function 08/30/18 Range/Units 08:00 Total Bilirubin 0.3 (0.2-1) mg/dl AST 47 H (15-37) U/L ALT 82 H (12-78) U/L Alkaline Phosphatase 119 H (45-117) U/L Albumin 3.8 (3.4-5.0) gm/dl Urine 08/30/18 08/30/18 Range/Units 07:30 10:13 Urine Color Yellow Yellow Urine Appearance Turbid H Clear (Clear) Urine pH 5.0 5.5 (4.5-7.5) Ur Specific [place] 1.026 >= 1.030 (1.000-1.030) Urine Protein 1+ H Negative (Negative) Urine Glucose (UA) 2+ H 2+ H (Negative) Diagnostic Findings CXR: FINDINGS: Cardiomediastinal and hilar silhouettes are within normal limits. Mild right hemidiaphragmatic elevation. No pneumothorax, pleural effusion or overt pulmonary edema. No focal airspace consolidation to suggest pneumonia. Bones appear grossly intact. IMPRESSION: No acute process. Abd/Pelvis CT: IMPRESSION: 1. There are 2 obstructing stones within the left ureteropelvic junction resulting in mild left hydronephrosis. 2. Bilateral nephrolithiasis. 3. Hepatic steatosis. Code Status & VTE Plan Code Status Full Code VTE Prophylaxis Plan VTE Prophylaxis will be ordered: Yes Reason for no VTE drug order: Treatment not indicated (hold chemical prophlyaxis in light of possible procedure later today) Supervising Physician Co-Signing Physician Notes I saw this patient with the physician assistant store manager trainee, I participated in the history, physical, review of systems, and physical exam. I reviewed the medications with the patient and the physician assistant store manager trainee and helped reconcile the medications. I helped take a detailed family and social history as well. I formulated the assessment and plan personally with the physician assistant store manager trainee and went over it with the patient.
[2018-08-30] MEDS ORDERED: INSULIN ASPART 100 UNITS/ML 3 ML PEN SC SCH (11:30)
[2018-08-30] MEDS: SODIUM CHLORIDE 0.9% 1000ML 1,000 ML IV SCH ×2 (11:31→19:32)
[2018-08-30] MEDS: KETOROLAC TROMETHAMINE 15 MG/ML VIAL IV PRN ×2 (11:45→19:26)
[2018-08-30] MEDS: LOSARTAN POTASSIUM 25 MG TAB PO SCH (12:03)
[2018-08-30] MEDS: INSULIN GLARGINE SOLOSTAR 100 UNITS/ML 3 ML PEN SC SCH ×2 (12:14→21:36)
[2018-08-30] MEDS: INSULIN ASPART 100 UNITS/ML 3 ML PEN SC SCH ×2 (12:51→21:37)
--- NOTE | 2018-08-30 16:31 | Anesthesiology Consultation ---
Date of Service August 30, 2018 Assessment & Plan (1) Encounter for pre-operative examination: Chart Review Chart Review: Acceptable Risk for Surgery History Surgery Operation Date: 08/30/18 17:00 Proposed Procedures p Cystoscopy, Left Ureteroscopy, Laser Lithotripsy - Basket Stone Extraction, and Stent Placement - Maddie Horner MD Height/Weight Height: 5 ft 7 in Weight: 103.6 kg Allergies Allergy/AdvReac Type Severity Reaction Status Date / Time adhesive Allergy Intermediate skin Verified 08/30/18 07:44 blisters Medications Home Medications Medication Instructions Recorded Confirmed Last Taken anastrozole [Arimidex] 1 mg PO DAILY #0 tab 08/07/15 08/30/18 Unknown escitalopram oxalate 20 mg PO DAILY #0 tab 08/07/15 08/30/18 Unknown losartan 25 mg PO DAILY #0 tab 12/12/16 08/30/18 Unknown metformin 1,000 mg PO BID #0 12/12/16 08/30/18 Unknown atorvastatin 20 mg PO DAILY 08/30/18 08/30/18 Unknown bupropion HCl [Wellbutrin XL] 150 mg PO QAM 08/30/18 08/30/18 Unknown glipizide 10 mg PO DAILY 08/30/18 08/30/18 Unknown Active Medications Generic Name Dose Route Start Last Admin Trade Name Freq PRN Reason Stop Dose Admin Sodium Chloride 1,000 mls @ 150 mls/hr 08/30/18 11:30 08/30/18 11:31 Nss 1000ml IV 09/29/18 11:29 150 mls/hr .[id number] GERARD Administration Insulin Aspart 0 units 08/30/18 13:00 08/30/18 12:51 Novolog Flexpen SC 09/29/18 12:59 Not Given Q6H GERARD Insulin Glargine 0 - 8 units 08/30/18 11:16 08/30/18 12:14 Lantus Solostar Pen SC 09/29/18 11:15 8 units Q12 GERARD Administration Protocol Ketorolac Tromethamine 15 mg 08/30/18 11:16 08/30/18 11:45 Toradol IV 09/04/18 11:15 15 mg Q6H PRN Administration Pain Losartan Potassium 25 mg 08/30/18 11:16 08/30/18 12:03 Cozaar PO 09/29/18 11:15 25 mg DAILY GERARD Administration Ondansetron HCl 4 mg 08/30/18 11:16 08/30/18 11:46 Zofran IV 09/29/18 11:15 4 mg Q6H PRN Administration Nausea Past Medical History Medical History Depression (Chronic) HLD (hyperlipidemia) (Chronic) T2DM (type 2 diabetes mellitus) (Chronic) A1C 04/18/18 7.8 Elevated LFTs (Chronic) hepatic steatosis per CT on 08/30/17 LFT 04/18/2018 AST 89 ALT 118 Breast cancer (Chronic) hx R sided breast cancer in 2011 s/p complete simple masectomy Kidney stone (Chronic) Hypertension (Chronic) Past Family History Family History Father CAD (coronary artery disease) Mother Cerebral aneurysm Grandmother (Paternal) Ovarian ca Past Surgical History Surgical History History of breast biopsy History of lymph node biopsy History of lithotripsy History of ureter stent History of colonoscopy Social History Smoking Status: Never smoker Do You Dip or Chew Tobacco: No Hx Alcohol Use: Yes alcohol intake frequency: a few times a week Alcohol Intake Frequency Comment: occasionally Hx Substance Use: No Physical Exam Vital Signs Last Vital Signs Temp 36.7 C 08/30/18 15:15 Pulse 96 H 08/30/18 15:15 Resp 17 08/30/18 15:15 BP 157/96 H 08/30/18 15:15 Pulse Ox 91 08/30/18 15:15 Testing Electrocardiogram Date: 08/30/18 Findings: + NSR @ (92) Laboratory Results 08/30/18 08:00 08/30/18 08:00 Urine Color Yellow 08/30/18 10:13 Urine Appearance Clear (Clear) 08/30/18 10:13 Urine pH 5.5 (4.5-7.5) 08/30/18 10:13 Ur Specific [place] >= 1.030 (1.000-1.030) 08/30/18 10:13 Urine Protein Negative (Negative) 08/30/18 10:13 Urine Glucose (UA) 2+ (Negative) H 08/30/18 10:13 Urine Ketones 1+ (Negative) H 08/30/18 10:13 Urine Nitrite Negative (Negative) 08/30/18 10:13 Ur Leukocyte Esterase Negative (Negative) 08/30/18 10:13 Urine WBC (Auto) 1-5 /hpf (0-5) 08/30/18 10:13 Urine RBC (Auto) >30 /hpf (0-4) H 08/30/18 10:13 U Hyaline Cast (Auto) 0 /lpf (0-5) 08/30/18 10:13 U Epithel Cells (Auto) 5-10 /lpf (0-5) H 08/30/18 10:13 Urine Bacteria (Auto) Negative (Negative) 08/30/18 10:13 Urine RBC Not Reportable 08/30/18 10:13 Urine WBC Not Reportable 08/30/18 10:13 Ur Epithelial Cells Not Reportable 08/30/18 10:13 08/30/18 12:08 POC Glucose 251 H 08/30/18 07:30 POC Ur Test NEG
[2018-08-30] MEDS ORDERED: fentaNYL citrate 100 MCG/2 ML VIAL ONE (16:38)
[2018-08-30] MEDS ORDERED: MIDAZOLAM HCL 1 MG/ML 2ML VIAL ONE (16:38)
--- NOTE | 2018-08-30 16:40 | Urology Consultation ---
Date of Consultation August 30, 2018 Assessment & Plan (1) History of breast biopsy: (2) T2DM (type 2 diabetes mellitus): (3) Elevated LFTs: (4) Hypertension: (5) Nephrolithiasis: has 10mm and 5mm obstructing stone left upper ureter. not likely to pass, severe pain plan to OR today cysto left ureteroscopy laser litho basket stone extraction stent has had this surgery before we reviewed risks and she signed consent. scds and ancef strength and conditioning coach home tomorrow Present on Admission?: Yes History of Present Illness Reason for Consultation: Left renal colic, obstructing stones Requesting Physician: Pipe Pink PA-C Attending Physician: Brooks Moran DO History of Present Illness I am asked by Pipe Pink, Tucker to evaluate and treat patient for left flank pain. Began suddenly 3am today. Is severe left flank and causes nausea. No fever. She has had stones before. She went to ER and had ct scan showing 10mm and 5mm stones in the left UPJ with hydro. Her pain is more distal this evening. Allergies Allergy/AdvReac Type Severity Reaction Status Date / Time adhesive Allergy Intermediate skin Verified 08/30/18 07:44 blisters Home Medications Home Medications Medication Instructions Recorded Confirmed Type anastrozole [Arimidex] 1 mg PO DAILY #0 tab 08/07/15 08/30/18 History escitalopram oxalate 20 mg PO DAILY #0 tab 08/07/15 08/30/18 History losartan 25 mg PO DAILY #0 tab 12/12/16 08/30/18 History metformin 1,000 mg PO BID #0 12/12/16 08/30/18 History atorvastatin 20 mg PO DAILY 08/30/18 08/30/18 History bupropion HCl [Wellbutrin XL] 150 mg PO QAM 08/30/18 08/30/18 History glipizide 10 mg PO DAILY 08/30/18 08/30/18 History acetaminophen 500 mg PO Q4H PRN #90 cap 08/31/18 Rx ibuprofen [Motrin IB] 400 mg PO Q4H PRN #90 tab 08/31/18 Rx tamsulosin [Flomax] 0.4 mg PO DAILY #30 cap 08/31/18 Rx Patient History Medical History Depression (Chronic) HLD (hyperlipidemia) (Chronic) T2DM (type 2 diabetes mellitus) (Chronic) A1C 04/18/18 7.8 Elevated LFTs (Chronic) hepatic steatosis per CT on 08/30/17 LFT 04/18/2018 AST 89 ALT 118 Breast cancer (Chronic) hx R sided breast cancer in 2011 s/p complete simple masectomy Kidney stone (Chronic) Hypertension (Chronic) Surgical History History of breast biopsy History of lymph node biopsy History of lithotripsy History of ureter stent History of colonoscopy Family History Father CAD (coronary artery disease) Mother Cerebral aneurysm Grandmother (Paternal) Ovarian ca Social History marital status: Single Current Living Situation: Alone current occupational status: employed Other Information That Helps Us Care for You: No Feels Safe at Home: Yes Safety Concerns: Feels Safe At This Time Smoking Status: Never smoker Do You Dip or Chew Tobacco: No Hx Alcohol Use: Yes Alcohol Intake Frequency: a few times a week Alcohol Intake Frequency Comment: 5 drinks a week Hx Substance Use: No Beliefs That Will Affect Care: None Preferred Language: Romanian Review of Systems Soc- Hx- kkno tobacco no alcohol, employed ROS- kno chest pain no shortness of breath, no constipation or diarrhea, + nausea no emesis. no fever, no rash, no siezures, vision fine, no weight loss, no weakness or numbness Physical Exam 2 Vital Signs (Past 24 Hours): Last Vital Signs Temp 36.7 C 08/30/18 15:15 Pulse 96 H 08/30/18 15:15 Resp 17 08/30/18 15:15 BP 157/96 H 08/30/18 15:15 Pulse Ox 91 08/30/18 15:15 Constitutional: WD/WN, vitals as above + overweight Eyes: EOM intact bilaterally Respiratory: normal respiratory effort, lungs clear to auscultation Cardiovascular: RRR, no murmur, no edema Gastrointestinal (Abdomen): tender left lower quadrant, not distended, no rebound, no hernia Skin: no rashes, warm and dry Psychiatric: A+Ox3, euthymic affect Lymphatic: no edema either bah no calf tenderness
[2018-08-30] MEDS ORDERED: LABETALOL HCL IV 5 MG/ML 20ML IV PRN (16:50)
[2018-08-30] MEDS ORDERED: fentaNYL citrate 100 MCG/2 ML VIAL IV PRN (16:50)
[2018-08-30] MEDS ORDERED: ATROPINE SULFATE 0.1 MG/ML 10ML SYR IV PRN (16:50)
[2018-08-30] MEDS ORDERED: CEFAZOLIN 2000MG 2,000 MG/15 ML SYR IV SCH (16:51)
[2018-08-30] MEDS ORDERED: CEFAZOLIN 2,000 MG/15 ML IV PUSH IV ONE (16:52)
[2018-08-30] MEDS ORDERED: METOCLOPRAMIDE HCL INJ 5 MG/ML 2 ML VIAL ONE (17:20)
[2018-08-30] MEDS ORDERED: LIDOCAINE HCL 2% 2 ML VIAL/AMP(20MG/ML) INFIL ONE (17:20)
[2018-08-30] MEDS ORDERED: ONDANSETRON INJ 2 MG/ML 2 ML VIAL ONE (17:20)
[2018-08-30] MEDS ORDERED: PROPOFOL IV EMULSION 10 MG/ML 20 ML VIAL IV ONE (17:20)
[2018-08-30] MEDS ORDERED: PHENYLEPHRINE 100MCG/ML 5ML SYR ONE (17:23)
[2018-08-30] MEDS ORDERED: BELLADONNA/OPIUM SUPP 60 MG SUPP PR ONE (18:12)
--- NOTE | 2018-08-30 18:20 | Operative Report ---
Post Operative Report Pre & Post Diagnosis Operation Date: 08/30/18 17:00 Pre-Op Diagnosis: left ureteral stones Post-Op Diagnosis: left ureteral stones Procedure Operation Date: 08/30/18 17:00 Actual Procedures p Cystoscopy, Left Ureteroscopy, Laser Lithotripsy - Basket Stone Extraction, and Stent Placement(Not Applicable) - Maddie Horenr MD Surgeon Maddie Horner MD Dispensing Optician Apprentice none Estimated Blood Loss 2 Findings Consistent with Post-Op Diagnosis radio-opaque ureteral stones Fluids 600 Specimens left ureeral stone fragments Drains 6 fr 22 centimeter double J stent Anesthesia Type General Complications none Disposition Accompanied Patient To Recovery: Yes Disposition: Recovery Room Indications 10mm and 5mm left obstructing upper ureteral stones Description of Procedure Patient was given general LMA anesthesia and placed in lithotomy position. Her genitals were prepped and draped in sterile fashion. Time out held with team. I placed a 21 fr rigid cystoscope to bladder. The urethra is unremarkable. The UOs are slit shape and she has a moderate cystocele. I placed a road runner wire up left ureter and it pushed the stones from upper ureter to kidney. I placed a 5 fr catheter and exchanged wire for a stiff wire. I then passed a dual lumen cath to calibrate the UO and palce a road runner wire. I passed a flexible ureteroscope over the wire easily to the upper ureter. I advanced scope under vision into kidney. I used 270 micron holmium laser to fragment the stones into small pieces. I placed a 12/14 fr 26 centimeter ureteral access sheath o the mid ureter. I used 1.9 fr zero tip basket to remove all but the tiniest pieces. I made sure there wer no radio-opque piecees left and no visible pieces on uscope exam. I backed scope and sheath out and found ureter ot be stone free. I placed a 22 centimeter 6 Fr double J stent easily. There is brisk efflux after placement. I left bladder empty and concluded case. I placed a belladonna and opium suppository for post-op pain. She transferred to recovery under my escort, in stable condition. Plan: Home tomorrow Pyridium for dysuria x 3 days flomax daily oral pain meds as needed stent out in clinic next week ASA 3 clean contaminated case 26 seconds fluoro ancef antibiotic stationary engineer apprentice I attest to the content of the Intraoperative Record and any orders documented therein. Any exceptions are noted below.
--- NOTE | 2018-08-30 19:07 | Anesthesiology Progress Note ---
Date of Service August 30, 2018 Anesthesia Post Procedure Vital Signs Vital Signs: Temp Pulse Pulse Pulse Pulse Resp BP 08/30/18 19:00 37.0 C 96 H 21 08/30/18 18:50 94 H 23 08/30/18 18:40 91 H 20 08/30/18 18:30 90 23 08/30/18 18:22 36.1 C L 96 H 17 08/30/18 16:45 37 C 93 H 16 08/30/18 15:15 36.7 C 96 H 17 08/30/18 11:20 36.8 C 83 18 08/30/18 09:47 86 16 08/30/18 08:21 81 18 08/30/18 07:19 36.3 C L 91 H 20 146/88 H BP Pulse Ox 08/30/18 19:00 144/92 H 96 08/30/18 18:50 151/93 H 92 08/30/18 18:40 146/89 H 96 08/30/18 18:30 142/65 H 97 08/30/18 18:22 145/94 H 99 08/30/18 16:45 137/85 95 08/30/18 15:15 157/96 H 91 08/30/18 11:20 152/94 H 91 08/30/18 09:47 150/99 H 95 08/30/18 08:21 148/97 H 92 08/30/18 07:19 97 Pain Intensity Left Flank: Pain Intensity: 5 Left Lower Abdomen: Pain Intensity: 8 Notes Mental Status: alert / awake / arousable Patient Amnestic to Procedure: Yes Nausea / Vomiting: adequately controlled Pain: adequately controlled Airway Patency, RR, SpO2: stable & adequate BP & HR: stable & adequate Hydration State: stable & adequate Anesthetic Complications: no major complications apparent
--- NOTE | 2018-08-30 19:18 | Fluoroscopy Report ---
FL KUB CLINICAL HISTORY: LT CYSTO/LASER/STENT COMPARISON STUDY: None FLUOROSCOPY TIME: 26 seconds NUMBER OF FLUOROSCOPIC IMAGES: 9) FINDINGS: Image intensifier utilized for left ureteral lithotripsy and subsequent stent placement IMPRESSION: Lithotripsy and subsequent stent placement The above report was generated using voice recognition software. It may contain grammatical, syntax or spelling errors. Electronically signed by: Benji Stuart M.D. 08/30/2018 7:17 PM
[2018-08-30] MEDS ORDERED: PHENAZOPYRIDINE HCL 200 MG TAB PO PRN (19:21)
[2018-08-30] MEDS ORDERED: Nursing to Pharmacy Communication ONE (20:09)
[2018-08-31] MEDS: KETOROLAC TROMETHAMINE 15 MG/ML VIAL IV PRN (01:55)
[2018-08-31] MEDS: SODIUM CHLORIDE 0.9% 1000ML 1,000 ML IV SCH ×2 (01:56→07:59)
[2018-08-31] MEDS: INSULIN ASPART 100 UNITS/ML 3 ML PEN SC SCH ×2 (02:37→09:01)
[2018-08-31 08:04] LABS: Estimated Average Glucose 209 mg/dl
[2018-08-31] MEDS: LOSARTAN POTASSIUM 25 MG TAB PO SCH (08:59)
[2018-08-31] MEDS ORDERED: BuPROPion XL 150 MG TABCR PO SCH (09:00)
[2018-08-31] MEDS ORDERED: ANASTROZOLE 1 MG TAB PO SCH (09:00)
[2018-08-31] MEDS: INSULIN GLARGINE SOLOSTAR 100 UNITS/ML 3 ML PEN SC SCH (09:00)
[2018-08-31] MEDS ORDERED: ESCITALOPRAM OXALATE 20 MG TAB PO SCH (09:00)
--- NOTE | 2018-08-31 09:30 | Discharge Summary ---
Date of Service August 31, 2018 Admission HPI Per Admitting Provider This is a 48-year-old white female with significant past medical history of HTN , HLD, T2 DM, elevated LFTs, history of right-sided breast CA status post complete mastectomy in 2011, history of nephrolithiasis in past requiring lithotripsy and stent placement in 2014 and 2016 who presents to [facility] ED secondary to left-sided back and abdominal pain since 3 AM. Patient was in her normal state of health until she awoke this morning at 3 AM with severe, 10 out of 10, left-sided back pain with radiation to left lower abdominal quadrant, constant, described as stabbing, nothing made better. She tried Celebrex without relief. She was unable to take her oral medications this morning secondary to nausea, yellow emesis. She elicits to being diaphoretic and sweaty secondary to retching. She denies f/c/s, dizziness, lightheaded, syncope, chest pain, sob, hemoptysis, hematemesis, diarrhea, dysuria, increased frequency urgency with urination, hematuria, melena, hematochezia. Her appetite has been normal up until this morning. Admission Exam Per Admitting Provider Gen: WD/WN, morbidly obese F, NAD, drowsy, lying in bed, pleasant, conversing easily, answers questions approp Head: Normocephalic, Atraumatic Eyes: Sclera normal, no conjunctival injection, PERRLA, EOMI ENT: Gross hearing intact, normal pharynx, mucous membranes dry Neck: supple, no adenopathy, No JVD, no bruit, Resp: Clear to auscultation b/l, no wheeze, rales, rhonchi. Normal insp/exp effort, no accessory muscle use CV: Regular rate, regular rhythm, no murmur, rub, gallop, or ectopy Abd: +BS x 4, soft, nontender, nondistended, +L CVA tenderness Musculoskeletal: moves extremities active rom x 4, strength intact, good colorman strength Extremities: No edema bilaterally Skin: warm, moist, no rash, negative turgor, cap refill < 2sec Neuro: Alert and oriented x 3, speech normal, good mood/affect, cran nerve 2-12 intact grossly : deferred Principal Diagnosis L Renal Stones Hydronephrosis Depression DM II HLD HTN Breast CA c Mets Discharge Exam ROS-No Headache, No Visual Changes, No Fever, No Chills, No Neck Pain or Stiffness, No Chest Pain, No Palpitations, No SOB, No SOUZA, No Cough, No Sputum, No Wheezing, No Abdominal Pain, No Diarrhea, No Hematemesis, No Hemoptysis, No Unexpected Weight Loss, No Flank pain, No Melena, No Hematochezia, No Frequency , No Urgency, No Burning, No Hematuria, No Rashes, No Diaphoresis. Appetite is Normal, mild flank pain Physical Exam Gen-AAO x 3, NAD, Afebrile, obese Head-NCAT, EOMI, PERRLA, Anicteric Sclera, No Posterior Pharyngeal Erythema Neck-Supple, No JVD, No Thyromegaly, No Masses, No LAD, No Bruits Lungs-Clear to Auscultation Bilaterally, No Rales, No Rhonchi, No Wheezing, No Crepitus Chest-No S4, +S1, +S2, No S3, No Murmurs, No Rubs, No Gallops, No Ectopy Abdomen-Soft, Bowel Sounds Present, Non Tender, Non Distended, No Hepatomegaly, No Splenomegaly, No Palpable Masses, No Rebound, No Rigidity, No Guarding Musculoskeletal-Full Range of Motion Bilaterally, No CVAT Extremities-No Cyanosis, No Clubbing, No Edema Nuero-Cranial Nerves II-XII grossly intact, Motor WNL, DTRs WNL, Strength WNL, No Focal Psych-Normal Mood Discharge Data Allergies Allergy/AdvReac Type Severity Reaction Status Date / Time adhesive Allergy Intermediate skin Verified 08/30/18 07:44 blisters Consultations 08/30/18 10:04 ED Decision to Admit Stat 08/30/18 10:40 Consult Urology Routine Procedures Performed Operation Date: 08/30/18 17:00 Actual Procedures p Cystoscopy, Left Ureteroscopy, Laser Lithotripsy - Basket Stone Extraction, and Stent Placement(Not Applicable) - Maddie Horner MD Ordered Studies 08/30/18 07:45 CT abd pelvis wo con Stat 08/30/18 17:00 FL KUB Routine FL fluoroscopy <1hr Routine Current Diagnoses Type 2 diabetes mellitus without complications (08/30/18) Hyperlipidemia, unspecified (08/30/18) Major depressive disorder, single episode, unspecified (08/30/18) Essential (primary) hypertension (08/30/18) Unspecified hydronephrosis (08/30/18) Calculus of kidney (08/30/18) Abnormal results of liver function studies (08/30/18) Encounter for other preprocedural examination (08/30/18) Allergies adhesive Allergy (Intermediate, Verified 08/30/18 07:44) skin blisters Height/Weight/Isolation Height 5 ft 7 in Weight 103.6 kg Chemistry 08/30/18 08:00 Sodium 136 Potassium 4.0 Chloride 102 Carbon Dioxide 22 Anion Gap 12.0 H BUN 22 H Creatinine 1.20 Glucose 284 H Urinalysis 08/30/18 08/30/18 07:30 10:13 Urine Color Yellow Yellow Urine Appearance Turbid H Clear Urine pH 5.0 5.5 Ur Specific Arbuckle 1.026 >= 1.030 Urine Protein 1+ H Negative Urine Glucose (UA) 2+ H 2+ H Urine Ketones 1+ H 1+ H Urine Blood 3+ H 3+ H Urine Nitrite Negative Negative Urine Bilirubin Negative Negative Microbiology 08/30/18 07:30 Urine,Clean Catch Urine Culture - Pending Hospital Course (1) Nephrolithiasis: This is a 48-year-old white female with significant past medical history of HTN , HLD, T2 DM, elevated LFTs, history of right-sided breast CA status post complete mastectomy in 2011, history of nephrolithiasis in past requiring lithotripsy and stent placement in 2014 and 2016 who presents to [facility] ED secondary to left-sided back and abdominal pain since 3 AM. In ED patient's WBC was 13.09, hemoglobin 12.2, hematocrit 37.4, platelet 276, sodium 136, potassium 4.0, BUN 22, creatinine 1.20, glucose 284, AST 47, ALT 82 , alk phos 119, chest x-ray negative for acute abnormality. Her CT scan of abdomen pelvis revealed 2 obstructing nephrolithiasis at left ureteropelvic junction, 10mm and 5mm. In ED patient received 1 L IV fluid, IV Zofran, IV Dilaudid Patient went to the OR with Dr. Horner last night for the below procedure p Cystoscopy, Left Ureteroscopy, Laser Lithotripsy - Basket Stone Extraction, and Stent Placement(Not Applicable) - Maddie Horner MD Discharge today on Pyridium 200 3 times daily for 3 days Flomax 0.4 mg daily, [id number] Tylenol and Motrin for pain (2) Hydronephrosis: Status post stone extraction by Dr. Horner (3) T2DM (type 2 diabetes mellitus): -A1C 7.8 03/2018 -Resume metformin/glipizide on discharge (4) Hypertension: -continue cozaar (5) HLD (hyperlipidemia): -continue statin (6) Depression: -continue escitalopram (7) Elevated LFTs: non issue (8) DVT prophylaxis: Disposition: D/C to home today Follow up: with PCP Dr. London and Evens Total Time Total Time Spent Total Time Spent (In Minutes): 45 mins Total Time Includes: Examination of the Patient, Discharge Planning, Medication Reconciliation and Communication With Other Providers Discharge Plan Discharge Items Patient Disposition: Home - Self-Care Reason For Visit: L NEPHROLITHIASIS Discharge Diagnosis: Renal Stones Hydronephrosis Depression DM II HLD HTN Breast CA c Mets Condition: Fair Discharge Goals: Improve function Activity: Resume your previous activity Lifting: Gradually increase as tolerated Bathing: No limitations Sexual Activity: When tolerated Exercise/Sports: Gradually increase as tolerated Driving/Machine Use: No limitations Weightbearing: Left weightbearing and Right weightbearing Non-emergency contact: Primary Care Provider and Urologist Call non-emergency contact if: your symptoms worsen and you have a fever Diet: Carb Consistent or DM2 and Heart Healthy Addtl Provider Instructions: S/P Extraction of Renal Stones Prescriptions: New phenazopyridine [Pyridium] 200 mg tablet 200 mg PO Q8H 3 Days Qty: 9 RF: 0 phenazopyridine [Pyridium] 200 mg tablet 200 mg PO Q8H 3 Days Qty: 9 RF: 0 tamsulosin [Flomax] 0.4 mg capsule 0.4 mg PO DAILY Qty: 30 RF: 0 Continue anastrozole [Arimidex] 1 mg Tablet 1 mg PO DAILY Qty: 0 RF: 0 escitalopram oxalate 20 mg Tablet 20 mg PO DAILY Qty: 0 RF: 0 losartan 25 mg Tablet 25 mg PO DAILY Qty: 0 RF: 0 metformin 500 mg Tablet Extended Release 24 Hr 1,000 mg PO BID Qty: 0 RF: 0 atorvastatin 20 mg Tablet 20 mg PO DAILY RF: 0 glipizide 10 mg Tablet 10 mg PO DAILY RF: 0 bupropion HCl [Wellbutrin XL] 150 mg Tablet Extended Release 24 Hr 150 mg PO QAM RF: 0 Visit Report Forms: [employer] Portal Stand-Alone Forms: [employer] Discharge Orders: Discharge Order (Routine); Ordered 08/31/18 Ordered By: Brooks Moran Admission Data Admit Date/Time: 08/30/18 10:48 Attending Provider: Brooks Moran Admit Provider: Brooks Moran Primary Care Provider: Lev London Other Providers: Brooks Moran ; Maddie Horner Service: Surgical Services Other Pending Studies at Discharge: No
--- NOTE | 2018-08-31 13:38 | Anesthesiology Progress Note ---
Date of Service August 31, 2018 Anesthesia Post Procedure Vital Signs Vital Signs: Temp Pulse Pulse Pulse Resp BP Pulse Ox 08/31/18 11:14 37.1 C 91 H 18 137/88 91 08/31/18 07:20 37.1 C 91 H 18 137/88 91 08/31/18 03:23 37.1 C 91 H 17 122/80 90 08/30/18 23:03 37.2 C 101 H 18 121/78 91 08/30/18 21:29 37.1 C 99 H 18 145/88 H 92 08/30/18 20:41 37.1 C 98 H 18 119/74 96 08/30/18 19:47 36.8 C 88 18 130/83 93 08/30/18 19:15 37.3 C 93 H 20 154/92 H 95 08/30/18 19:05 92 H 20 154/96 H 93 08/30/18 19:00 37.0 C 96 H 21 144/92 H 96 08/30/18 18:50 94 H 23 151/93 H 92 08/30/18 18:40 91 H 20 146/89 H 96 08/30/18 18:30 90 23 142/65 H 97 08/30/18 18:22 36.1 C L 96 H 17 145/94 H 99 08/30/18 16:45 37 C 93 H 16 137/85 95 08/30/18 15:15 36.7 C 96 H 17 157/96 H 91 Pain Intensity Left Flank: Pain Intensity: 5 Left Lower Abdomen: Pain Intensity: 5 Notes Mental Status: alert / awake / arousable and participated in evaluation Patient Amnestic to Procedure: Yes Nausea / Vomiting: see Notes below Pain: adequately controlled Airway Patency, RR, SpO2: stable & adequate BP & HR: stable & adequate Hydration State: stable & adequate Anesthetic Complications: no major complications apparent and Pt Satisfied with anesthetic care
[2018-09-05 09:08] LABS: Component 2 DNR
== END 2018-08-31 11:33 | disposition home or self-care (01) | DRG 661 ==
LOC: ED 07:15 → 3W 10:48
DX: N20.0 Calculus of kidney; Z82.49 Family history of ischemic heart disease and other diseases of the circulatory system; N13.2 Hydronephrosis with renal and ureteral calculous obstruction; R79.89 Other specified abnormal findings of blood chemistry; F32.9 Major depressive disorder, single episode, unspecified; E11.9 Type 2 diabetes mellitus without complications